=== PATIENT | male | born 1945 | race Caucasian/White ===

== ENCOUNTER → 2023-11-30 09:57 | Outpatient (REF) | payer MEDICARE, OTHER, SELFPAY | LOC: RAD 09:57 | PROVIDERS: ATTENDING PHYSICIAN Internal Medicine Rheumatology; FAMILY PHYSICIAN Family Medicine | DX: G56.03 Carpal tunnel syndrome, bilateral upper limbs (principal); G62.9 Polyneuropathy, unspecified; G89.29 Other chronic pain; K90.41 Non-celiac gluten sensitivity; M25.512 Pain in left shoulder; M25.572 Pain in left ankle and joints of left foot; M47.812 Spondylosis without myelopathy or radiculopathy, cervical region; M75.32 Calcific tendinitis of left shoulder; M79.672 Pain in left foot; Z68.27 Body mass index [BMI] 27.0-27.9, adult; Z68.28 Body mass index [BMI] 28.0-28.9, adult | CPT/HCPCS: 73600; 73630 ==